=== PATIENT | male | born 1990 | race Caucasian/White ===

== ENCOUNTER 2018-02-20 16:18 | Emergency (ER) | payer MEDICAID ==
[~2018-02-20] VITALS: Ht 180.3 cm; Wt 79.5 kg
[2018-02-20 16:42] VITALS: BP 151/73
[2018-02-20] MEDS ORDERED: POLOS RIGHTEYE (16:49)
== END 2018-02-20 19:34 | disposition home or self-care (01) ==
LOC: ER 16:18
DX: S05.8X1A Other injuries of right eye and orbit, initial encounter (principal); W22.8XXA Striking against or struck by other objects, initial encounter; Y93.89 Activity, other specified; Y92.89 Other specified places as the place of occurrence of the external cause; Y99.8 Other external cause status
CPT/HCPCS: 99283